=== PATIENT | male | born 1970 | race Caucasian/White ===

== ENCOUNTER 2023-10-19 00:53 | Inpatient (IN) | payer OTHER ==
[~2023-10-19] VITALS: Ht 170.2 cm; Wt 86.7 kg
[2023-10-19] MEDS ORDERED: SODIUM CHLORIDE 0.9% 1,000 ML IV ONE (01:45)
[2023-10-19 01:55] LABS: BASOPHILS % 0.4 % (0.0-2.0); EOSINOPHILS % 1.5 % (0.0-5.0); HEMATOCRIT. 45.4 % (42.0-52.0); HEMOGLOBIN. 15.4 g/dL (14.0-18.0); LYMPHOCYTES % 48.7 % (20.0-50.0); MEAN CORPUSCULAR HEMOGLOBIN 32.4 pg (28.0-32.0); MEAN CORPUSCULAR HGB CONC 33.8 g/dL (31.0-37.0); MEAN CORPUSCULAR VOLUME 95.9 fL (80.0-94.0); MEAN PLATELET VOLUME 7.9 fl (7.4-10.4); NEUTROPHILS % 42.4 % (40.0-76.0); PLATELET 217 x1000/uL (130-400); RED BLOOD CELL COUNT 4.74 mill/uL (4.7-6.1); RED CELL DISTRIBUTION WIDTH 13.6 % (11.6-14.6); WHITE BLOOD COUNT 12.7 x1000/uL (4.5-11.0)
[2023-10-19] MEDS ORDERED: AMIODARONE HCL 150 MG in DEXT 5% WATER 100 ML IV ONE (02:00)
[2023-10-19] MEDS ORDERED: LEVETIRACETAM 500MG PREMIX 100 ML IV ONE (02:00)
[2023-10-19] MEDS ORDERED: AMIODARONE 150MG/100ML PREMIX 100 ML IV NR (02:00)
[2023-10-19] MEDS ORDERED: AMIODARONE HCL 900 MG in DEXT 5% WATER 500 ML IV NR (02:00)
[2023-10-19] MEDS ORDERED: AMIODARONE HCL 900 MG in DEXT 5% WATER 500 ML IV ONE (02:00)
[2023-10-19 02:01] LABS: PARTIAL THROMBOPLASTIN TIME 26.8 sec (23.4-31.0); PROTHROMBIN TIME 10.9 sec (9.6-11.0)
[2023-10-19 02:03] LABS: CALCIUM 8.7 mg/dL (8.7-10.4); CARBON DIOXIDE 25 mEq/L (21-32); CHLORIDE 102 mEq/L (98-107); CHOLESTEROL 214 mg/dL (<200); CREATINE KINASE 171 IU/L (46-171); CREATININE 0.9 mg/dL (0.6-1.3); GLUCOSE 154 mg/dL (70-105); HDL CHOLESTEROL 43 mg/dL (>55); LDL CHOLESTEROL 149 mg/dL (5-100); POTASSIUM 3.4 mEq/L (3.5-5.1); SODIUM 139 mEq/L (136-145); TRIGLYCERIDE 146 mg/dL (0-150); TROPONIN I HIGH SENSITIVITY 37 ng/L (3.0-53); UREA NITROGEN BLOOD 15 mg/dL (9-23)
[2023-10-19 02:23] LABS: BG BASE EXCESS -0.8 mmol/L (-2.0-2.0); BG CARBOXYHEMOGLOBIN 0.3 % (0.5-1.5); BG DEOXYHEMOGLOBIN 0.9 % (0.0-5.0); BG FRACTION INSPIRED OXYGEN 100; BG HCO3 ACT 25.7 mmol/L (22.0-26.0); BG METHEMOGLOBIN 0.3 % (0.0-1.5); BG OXYGEN SATURATION 99.1 % (92.0-98.5); BG OXYHEMOGLOBIN 98.5 % (94.0-97.0); BG PCO2 49.3 mmHg (35.0-45.0); BG PH 7.335 (7.350-7.450); BG PO2 202.2 mmHg (75.0-100.0); BG SAMPLE SITE RIGHT RADIAL; BG TOTAL HEMOGLOBIN 15.4 g/dL (12.0-18.0); BG VENT MODE MASK - NRB
[2023-10-19 02:38] LABS: LACTIC ACID 6.7 mmol/L (0.4-2.0)
[2023-10-19 05:26] LABS: TROPONIN I HIGH SENSITIVITY 1669 ng/L (3.0-53)
[2023-10-19 07:07] LABS: TROPONIN I HIGH SENSITIVITY 2553 ng/L (3.0-53)
[2023-10-19] MEDS ORDERED: ONDANSETRON HCL 4MG/2ML INJ IV PRN ×2 (08:00→14:45)
[2023-10-19] MEDS ORDERED: GUAIFENESIN 200MG/10ML SUGAR FREE UDC PO PRN (08:00)
[2023-10-19] MEDS ORDERED: ACETAMINOPHEN 325MG TABLET PO PRN ×2 (08:00→14:45)
[2023-10-19] MEDS ORDERED: LORAZEPAM 2MG/ML INJ IV PRN (08:00)
[2023-10-19] MEDS ORDERED: DOCUSATE SODIUM 100MG CAPSULE PO PRN (08:00)
[2023-10-19] MEDS: PIPERACILLIN/TAZO 3.375G/50ML 50 ML IV SCH ×4 (08:30→22:37)
[2023-10-19] MEDS: AMLODIPINE 5MG TABLET PO SCH (09:00)
[2023-10-19] MEDS ORDERED: ENOXAPARIN 40MG/0.4ML SYR SUBCUT SCH (10:00)
[2023-10-19] MEDS ORDERED: FENTANYL CITRATE/PF 50MCG/ML 2ML VIAL ONE (13:00)
[2023-10-19] MEDS ORDERED: LIDOCAINE HCL 1% 20ML VIAL (Pyxis) INJ ONE (13:01)
[2023-10-19] MEDS ORDERED: HEPARIN 1000 UNITS/ML 10ML ONE (13:01)
[2023-10-19] MEDS ORDERED: MIDAZOLAM HCL 2 MG/2 ML VIAL ONE (13:01)
[2023-10-19] MEDS ORDERED: ASPIRIN/SOD BICARB/CITRIC ACID 324MG TAB EFF ONE (13:02)
[2023-10-19] MEDS ORDERED: IODIXANOL 320MG/ML 100 ML BOTTLE IV ONE (13:02)
[2023-10-19] MEDS ORDERED: DIPHENHYDRAMINE 50MG/ML VIAL ONE (13:41)
[2023-10-19] MEDS ORDERED: FAMOTIDINE 20MG/2ML VIAL IV ONE (13:41)
[2023-10-19] MEDS ORDERED: METHYLPREDNISOLONE SOD SUCC 500 MG in DEXT 5% WATER 100 ML IV ONE (13:45)
[2023-10-19] MEDS ORDERED: HYDROCORTISONE SOD SUCCINATE 250 MG/2 ML VIAL IV ONE (13:45)
[2023-10-19] MEDS ORDERED: HYDROCORTISONE SOD SUCCINATE 100 MG/2 ML VIAL IV NR (13:45)
[2023-10-19] MEDS ORDERED: HYDROCORTISONE SOD SUCCINATE 250 MG/2 ML VIAL IV NR (14:00)
[2023-10-19] MEDS ORDERED: ATROPINE SULFATE 1MG/10ML SYR IV PRN (14:45)
[2023-10-19] MEDS ORDERED: MORPHINE SULFATE 2 MG/ML CPJ (NOT FOR IM USE) IV PRN (14:45)
[2023-10-19] MEDS ORDERED: SODIUM CHLORIDE 0.45% 1,000 ML IV ONE (14:45)
[2023-10-19 15:22] VITALS: BP 119/78; PULSE 68; RESP 18; TEMP 98.5
[2023-10-19] MEDS ORDERED: NALOXONE HCL 0.4MG/ML VIAL IV PRN (15:30)
[2023-10-19 15:42] VITALS: BP 119/78; PULSE 68; RESP 18; TEMP 98.5
[2023-10-19] MEDS: AMIODARONE HCL 200 MG TABLET PO SCH (17:25)
[2023-10-19 20:00] VITALS: BP 117/72; PULSE 71; RESP 23; TEMP 98.5
[2023-10-20] VITALS (7 sets, daily range): BP systolic 116–132; BP diastolic 27–86; PULSE 68–86; RESP 16–26; TEMP 98.6–98.9
[2023-10-20] MEDS ORDERED: VANCOMYCIN 1.5GM/250ML 250 ML IV NR (04:30)
[2023-10-20] MEDS: PIPERACILLIN/TAZO 3.375G/50ML 50 ML IV SCH ×2 (06:43→13:53)
[2023-10-20 07:25] LABS: BASOPHILS % 0.3 % (0.0-2.0); EOSINOPHILS % 0.5 % (0.0-5.0); HEMATOCRIT. 41.4 % (42.0-52.0); HEMOGLOBIN. 13.9 g/dL (14.0-18.0); MEAN CORPUSCULAR HEMOGLOBIN 32.5 pg (28.0-32.0); MEAN CORPUSCULAR HGB CONC 33.5 g/dL (31.0-37.0); MEAN CORPUSCULAR VOLUME 96.8 fL (80.0-94.0); MEAN PLATELET VOLUME 7.7 fl (7.4-10.4); MONOCYTES % 8.9 % (2.0-8.0); NEUTROPHILS % 70.3 % (40.0-76.0); PLATELET 200 x1000/uL (130-400); RED BLOOD CELL COUNT 4.27 mill/uL (4.7-6.1); RED CELL DISTRIBUTION WIDTH 13.6 % (11.6-14.6)
[2023-10-20 08:10] LABS: ALANINE AMINOTRANSFERASE 154 IU/L (10-49); ALBUMIN 3.5 g/dL (3.2-4.8); ASPARTATE AMINOTRANSFERASE 65 IU/L (<34); BILIRUBIN DIRECT 0.3 mg/dL (<=3.0); BILIRUBIN TOTAL 0.8 mg/dL (0.1-1.0); CALCIUM 8.6 mg/dL (8.7-10.4); CARBON DIOXIDE 23 mEq/L (21-32); CHLORIDE 107 mEq/L (98-107); CHOLESTEROL 182 mg/dL (<200); CREATININE 0.8 mg/dL (0.6-1.3); GLUCOSE 102 mg/dL (70-105); HDL CHOLESTEROL 43 mg/dL (>55); LDL CHOLESTEROL 109 mg/dL (5-100); POTASSIUM 3.7 mEq/L (3.5-5.1); PROTEIN TOTAL 6.3 g/dL (6.0-8.3); SODIUM 137 mEq/L (136-145); T4 FREE 1.11 ng/dL (0.89-1.76); TRIGLYCERIDE 101 mg/dL (0-150); TROPONIN I HIGH SENSITIVITY 286 ng/L (3.0-53); UREA NITROGEN BLOOD 15 mg/dL (9-23)
[2023-10-20] MEDS: AMIODARONE HCL 200 MG TABLET PO SCH ×3 (08:27→18:55)
[2023-10-20] MEDS: AMLODIPINE 5MG TABLET PO SCH (08:27)
[2023-10-20] MEDS: TRAMADOL 50MG TABLET PO PRN ×2 (08:52→19:01)
[2023-10-20] MEDS ORDERED: VANCOMYCIN 1G PREMIX 200 ML IV SCH (18:00)
== END 2023-10-20 21:20 | disposition short-term general hospital (02) | DRG 287 ==
LOC: ER 00:53 → 3WST 04:06 → EDBEDREQTM 04:10 → EDBEDREQ 04:10
PROVIDERS: ADMIT Hospitalist; ATTEND Hospitalist
PROC: 4A023N7 Measurement of Cardiac Sampling and Pressure, Left Heart, Percutaneous Approach (ICD-10-PCS; principal; 2023-10-19)
PROC: B211YZZ Fluoroscopy of Multiple Coronary Arteries using Other Contrast (ICD-10-PCS; 2023-10-19)
PROC: B215YZZ Fluoroscopy of Left Heart using Other Contrast (ICD-10-PCS; 2023-10-19)
DX: I49.01 Ventricular fibrillation (principal); E87.20 Acidosis, unspecified; I46.9 Cardiac arrest, cause unspecified; I10 Essential (primary) hypertension; E78.5 Hyperlipidemia, unspecified; E87.6 Hypokalemia; Z20.822 Contact with and (suspected) exposure to COVID-19; E05.90 Thyrotoxicosis, unspecified without thyrotoxic crisis or storm; D72.829 Elevated white blood cell count, unspecified; E66.9 Obesity, unspecified; R79.89 Other specified abnormal findings of blood chemistry; Z68.29 Body mass index [BMI] 29.0-29.9, adult; Z79.899 Other long term (current) drug therapy; Z86.73 Personal history of transient ischemic attack (TIA), and cerebral infarction without residual deficits; Z82.41 Family history of sudden cardiac death
CPT/HCPCS: 36415; 36600; 71045; 78580; 80048; 80053; 80061; 80076; 82330; 82375; 82533; 82550; 82805; 83605; 83735; 83880; 84100; 84439; 84443; 84481; 84484; 85025; 87426; 93005; 93306; 93458; 93970; 99291; C1769; C1887; C1893; J0282; J1200; J1644; J1720; J1953; J2250; J2405; J2543; J3010; J3370; J3490; J7030; J7060; Q9967